=== PATIENT | female | born 1965 | race Caucasian/White ===

== ENCOUNTER 2023-12-21 06:30 | Emergency (ER) | payer BC, OTHER | END 2023-12-21 07:00 | disposition home or self-care (01) | LOC: JD.ED 06:30 | DX: S02.5XXA Fracture of tooth (traumatic), initial encounter for closed fracture (principal); K04.7 Periapical abscess without sinus; X58.XXXA Exposure to other specified factors, initial encounter | CPT/HCPCS: 99282 ==